=== PATIENT | male | born 1960 | race Caucasian/White ===

== ENCOUNTER 2017-04-10 07:35 | Day surgery (SDC) | payer OTHER ==
[~2017-04-10] VITALS: Ht 177.8 cm; Wt 77.6 kg
[2017-04-10] MEDS ORDERED: ASPI81CH CHEW (08:11)
[2017-04-10] MEDS ORDERED: ATOR20TA15 PO (08:11)
[2017-04-10] MEDS ORDERED: CO Q10CA (08:11)
[2017-04-10] MEDS ORDERED: IBUP200C PO (08:11)
[2017-04-10 08:12] VITALS: BP 156/101; PULSE 65; RESP 18; TEMP 97.7; O2SAT 100
[2017-04-10 08:14] LABS: AUTOMATED NEUTROPHIL # 2.3 TH/MM3 (1.8-7.7); BASOPHIL % 0.8 % (0.0-2.0); EOSINOPHIL # 0.1 TH/MM3 (0-0.4); EOSINOPHIL % 2.4 % (0.0-4.0); HEMATOCRIT 42.5 % (39.0-51.0); HEMO FLAGS DIFF FINAL; LYMPH % 35.1 % (9.0-44.0); LYMPHOCYTE # 1.6 TH/MM3 (1.0-4.8); MEAN CELL VOLUME 85.7 FL (80.0-100.0); MEAN CORPUSCULAR HEMOGLOBIN 28.3 PG (27.0-34.0); MEAN CORPUSCULAR HGB CONC 33.1 % (32.0-36.0); MONO % 9.5 % (0.0-8.0); NEUT % 52.2 % (16.0-70.0); PLATELET COUNT 157 TH/MM3 (150-450); RED BLOOD COUNT 4.96 MIL/MM3 (4.50-5.90); RED CELL DISTRIBUTION WIDTH 13.7 % (11.6-17.2); WHITE BLOOD COUNT 4.4 TH/MM3 (4.0-11.0)
[2017-04-10 08:28] LABS: APTT (PATIENT) 23.9 SEC (24.3-30.1); PROTHROMBIN TIME - PATIENT 10.9 SEC (9.8-11.6)
[2017-04-10 08:30] LABS: BICARBONATE 32.1 MEQ/L (21.0-32.0); POTASSIUM 3.9 MEQ/L (3.5-5.1)
[2017-04-10] MEDS ORDERED: IOHEXOL 350 MG/ML 100 ML BTL (for Cath Lab) OTHER ONE (08:55)
[2017-04-10] MEDS ORDERED: MIDAZOLAM HCL 2 MG/2 ML VIAL ONE ×2 (08:57→12:12)
[2017-04-10] MEDS ORDERED: HEPARIN-NS/PF INJ 500 ML ONE (08:57)
[2017-04-10] MEDS ORDERED: NITROGLYCERIN INJ 5 ML ONE (08:58)
[2017-04-10] MEDS ORDERED: HEPARIN SODIUM - IV 10,000 UNITS/10 ML VIAL ONE (08:58)
[2017-04-10] MEDS ORDERED: VERAPAMIL HCL 5 MG/2 ML VIAL ONE (08:59)
--- NOTE | 2017-04-10 10:09 | CATHPROC ---
[employer] HIS Report Study Information Study Number Admission Scheduled Start Study Start [id number] Apr 10 2017 7:35AM 04/10/2017 Apr 10 2017 8:57AM [place] Service Cardiac Catheterization Admit Source Facility Department Other [facility] - [employer] Academic Coach Physician and Clinical Staff Initial Kirill Garnica Mgmt Specialist Shena Medeiros RN Mgmt Specialist Joyce Wilder BSRLit Recorder Alcides Flynn RCIS(BS) Shavon Steward RCIS TECH2 Procedures Performed Procedure Location (Site) Vessel Name Coronary Angiograms LCA Left Coronary Coronary Angiograms RCA Right Coronary L Heart Cath Equipment Time Car Retarder Operator Description Size Mfg Part Number Used/Scraped TRANSDUCER, TRUWAVE [id number] 09:14 JONES CARABALLO * Used W/STOCKCOCK *[id number] 534-518T *[id number] 534-521T *[id number] 09:14 [email or web address] PACK, CCL CUSTOM * Used *[id number] 09:14 [email or web address] SUPPORT, ARTERIAL ADULT 80034 Used BAND, RADIAL COMPRESSION TR [id number] 09:54 [employer] MEDICAL 29CM Used LARGE 29 *[id number] 09:14 [employer] WIRE, EXCHANGE 260CM 3MMJ 260CM Used *[id number] 09:14 NAMIC MANIFOLD, 4 PORT * Used *[id number] 09:14 [employer]ED OMNIPAQUE, 350 MG, 150ML 150ML [id number] Used [id number] 09:14 HORVATH Shut Down BLANKET,WARM AIR CCL * Used *[id number] SHEATH, FR6 TRANSRADIAL [id number] 09:14 [employer] MEDICAL FR 6 Used SLENDER 10CM *[id number] History: Current Medications Medication Dosage/Unit Route Frequency Last Date/Time Taken ASA Statins (any) History: Allergies Allergy Reaction No Known Allergies History: Risk Factors Family History of Hypertension Dyslipidemia Previous [place] Previous Heart Failure Premature CAD Yes Yes No No No Prior Valve Prior PCI Prior CABG Surgery No No No Cerebrovascular Peripheral Artery Chronic Lung On Dialysis Diabetes Disease Disease Disease No No No No No History: Stress Tests Stress or Imaging Studies Performed Yes Standard Exercise Stress Stress Test Result Test Yes Negative Stress Echo No Stress Test SPECT Stress Test SPECT Result Stress Test SPECT Ischemia Risk/Extent Yes Positive Low Stress Test CMR No Cardiac CTA Coronary Calcium Score No No History: Other Current Smoker No Labs Hgb (g/dl) Hct (%) WBC (l/cumm) Platelets (thousands) 11.60-17.00 35.00-51.00 4.00-11.00 150.00-450.00 14.0 42.5 4.4 157 Glucose (mg/dl) BUN (mg/dl) Creatinine (mg/dl) BUN:Creatinine (1:x) 74.00-106.00 7.00-18.00 0.50-1.30 10.00-20.00 86 15 1.0 15 Na (meq/l) K (meq/l) 136.00-145.00 3.50-5.10 141 3.9 INR (PTT:PT) 0.90-1.10 1 CPK-MB (ng/ML) 0.50-3.60 Not Drawn Medication Medication Total Dose (Bolus/Oral) Medication Total Dosage/Unit 1% XYLOCAINE 10 mL FENTANYL 50 mcg RADIAL COCKTAIL 5 mL (Bolus) VERSED 1 mg Medications (Bolus/Oral) Medication Time Given Dosage/Unit Administered By Reason VERSED 04/10/2017 9:35:00 AM 1 mg Shena Medeiros 1 mg VERSED given in lab by Shena Medeiros, RN in Left Antecubital via Peripheral IV. Ordered by Kirill Jaramillo. FENTANYL 04/10/2017 9:36:00 AM 50 mcg Shena Medeiros 50 mcg FENTANYL given in lab by Shena Medeiros, RN in Left Antecubital via Peripheral IV. Ordered by Kirill White. 1% XYLOCAINE 04/10/2017 9:36:54 AM 10 mL Kirill White 10 mL 1% XYLOCAINE given in lab by Kirill White in Right Radial via Subcutaneous. Ordered by Kirill Jaramillo. Ntg 200mcg Verapamil 2.5mg Heparin RADIAL COCKTAIL 04/10/2017 9:38:35 AM 5 mL (Bolus) Kirill White 2500U 5 mL (Bolus) RADIAL COCKTAIL given in lab by Kirill White via Radial. Using [Solution Name]. Ord ered by Kirill White. Reason: Ntg 200mcg Verapamil 2.5mg Heparin 3500U. Medication (Drip) Medication Time Given Dosage/Unit Concentration/Unit Diluent (ml) Solution [facility] Solutions 04/10/2017 8:58:40 AM 0 mL (IV) 500 NaCl .9 Patient arrived on [facility] in Left Antecubital via Peripheral IV. Pump/Drip Flow = 20 ml/hr usin g NaCl .9. Initial Case Assessment Cardiovascular HR Rhythm NIBP Chest Pain 59 SINUS JACQUES 154/86 0 Edema Present Skin color Skin None Normal Warm Dry Circulatory - Right Pulses Dorsalis Pedis Femoral Radial 2 2 3 Scale (0,1,2,3,4,d) Circulatory - Left Pulses Dorsalis Pedis Femoral Radial 2 2 Scale (0,1,2,3,4,d) Circulatory - Lower Extremities Color Lower Right Color Lower Left Normal Normal Neurological State Oriented to time-place- Alert Moves all extremities person Respiration - General Respiration Rate SpO2 (%) (B/min) 16 100 Final Case Assessment Cardiovascular HR Rhythm NIBP Chest Pain 59 SINUS JACQUES 154/86 0 Edema Present Skin color Skin None Normal Warm Dry Circulatory - Right Pulses Dorsalis Pedis Femoral Radial 2 2 3 Scale (0,1,2,3,4,d) Circulatory - Left Pulses Dorsalis Pedis Femoral Radial 2 2 Scale (0,1,2,3,4,d) Circulatory - Lower Extremities Color Lower Right Color Lower Left Normal Normal Neurological State Oriented to time-place- Alert Moves all extremities person Respiration - General Respiration Rate SpO2 (%) (B/min) 16 100 Chronological Log Time Study Chronological Log 8:57:59 Patient arrived via Bed. 8:58:00 Patient Name, D.O.B, / Armband Verified By R.N. 8:58:00 Consent signed by the physician and the patient and verified by the [employer] Academic [employer] staff. 8:58:01 Pre-op and post- op instructions given; patient acknowledges understanding of instructions. 8:58:03 Allens test performed on the right radial and ulnar artery. 8:58:12 Patient has been NPO for Less than 6Hrs. 8:58:13 Skin Breakdown- 8:58:39 A # 20 IV was noted in the Antecubital (left). Grade = 0 8:58:40 Patient arrived on [facility] in Left Antecubital via Peripheral IV. Pump/Drip Flow = 20 ml/hr using NaCl .9. 8:58:41 History and physical on the chart or being dictated. Assessment: Initial Case, HR=59 BPM, Rhythm=SINUS JACQUES, FTUO=390/86 mmhg, Chest Pain=0, Edema=N one, Color=Normal, Skin = Warm, Dry Right Pulses: Mitesh Ped=2, Femoral=2, Radial=3 Left Pulses: Mitesh Ped=2, Femoral=2 8:58:43 Lower Right Extremities: Color=Normal Lower Left Extremities: Color=Normal Neurological: State=Alert, Ox3, ARELLANO Respiration: Resp=16 B/min, NiO0=762 % Vitals capture started with the following parameters, Patient=Adult, Interval=5 min, Initial Pre rapmo=625 mmHg, 9:02:25 Deflation Rate=5 mmHg, Cuff placed on Right Arm 9:03:59 HR=63 bpm, EHUR=309/86 mmhg, UxU0=438.0 %, Resp=16 B/min, Pain=0, Basil=10, Cao=2 9:08:07 HR=55 bpm, ZKCP=986/82 mmhg, SpO2=98.0 %, Resp=26 B/min, Pain=0, Basil=10, Cao=2 9:13:06 HR=70 bpm, QCAL=241/81 mmhg, IhB3=633.0 %, Resp=7 B/min, Pain=0, Basil=10, Cao=2 9:18:05 NJ=484 bpm, WCTG=430/88 mmhg, SpO2=99.0 %, Resp=12 B/min, Pain=0, Basil=10, Cao=2 9:19:18 Right Radial and groin(s) prepped with 2% chlorhexidine, and with a 3 min. waiting time. 9:19:23 MD arrived. 9:23:06 HR=62 bpm, EHTL=141/82 mmhg, BaG4=587.0 %, Resp=7 B/min, Pain=0, Basil=10, Cao=2 9:25:09 Pressure channel 1 zeroed. 9:28:07 HR=60 bpm, ZPIU=409/76 mmhg, UnH3=295.0 %, Resp=15 B/min, Pain=0, Basil=10, Cao=2 9:28:58 Reference ECG taken 9:33:06 HR=56 bpm, YPPM=927/82 mmhg, UrX5=351.0 %, Resp=13 B/min, Pain=0, Basil=10, Cao=2 9:35:00 1 mg VERSED given in lab by Shena Medeiros, RN in Left Antecubital via Peripheral IV. Order ed by Kirill White. Time Out. Correct patient, correct procedure,correct physician, power injector not loaded with c ontrast with surgical 9:35:09 team present. Time Out Concurred by , individual staff in procedure 50 mcg FENTANYL given in lab by Shena Medeiros, RN in Left Antecubital via Peripheral IV. Order ed by Christopher, 9:36:00 Kirill. 9:36:50 Case Start 10 mL 1% XYLOCAINE given in lab by Kirill White in Right Radial via Subcutaneous. Ordered b yesy White, 9:36:54 Kirill. 9:37:26 Access site was RIGHT Radial Artery. 9:38:07 HR=58 bpm, HVMJ=591/78 mmhg, SpO2=98.0 %, Resp=17 B/min, Pain=0, Basil=10, Cao=2 A SHEATH, FR6 TRANSRADIAL SLENDER 10CM FR 6 was advanced into the Radial (right) using the Navarro eng 9:38:20 technique. 5 mL (Bolus) RADIAL COCKTAIL given in lab by Kirill White via Radial. Using [Solution Name] . Ordered by 9:38:35 Kirill White. Reason: Ntg 200mcg Verapamil 2.5mg Heparin 3500U. A JR 4.0 INFINITI CATHETER FR 5 was advanced over a wire. OMNIPAQUE, 350 MG, 150ML 150ML was use d for 9:41:40 injections. Recorded Pressure: LV, HR=59, Condition=Condition 1 9:42:22 (Left Ventricle) LV 97/-1/6 Recorded Pressure: LV, Ao, HR=62, Condition=Condition 1 9:42:42 (Left Ventricle) LV 96/0/5, (Aorta) Ao 91/58/73 9:43:06 HR=61 bpm, HUFP=148/56 mmhg, SpO2=93.0 %, Resp=15 B/min, Pain=0, Basil=10, Cao=2 9:43:13 The RCA was injected and visualized at various angles. OMNIPAQUE, 350 MG, 150ML 150ML used. Recorded Pressure: Ao, HR=58, Condition=Condition 1 9:43:42 (Aorta) Ao 90/59/75 After removing the current catheter a JL 3.5 INFINITI CATHETER FR 5 was advanced over a WIRE, EX CHANGE 260CM 9:43:57 3MMJ 260CM. 9:44:26 The LCA was injected and visualized at various angles. OMNIPAQUE, 350 MG, 150ML 150ML used. 9:48:07 HR=68 bpm, OOPJ=029/67 mmhg, SpO2=95.0 %, Resp=16 B/min, Pain=0, Basil=10, Cao=2 9:53:06 HR=69 bpm, HUDO=715/73 mmhg, SpO2=98.0 %, Resp=12 B/min 9:53:07 Catheter was removed 9:53:10 Case End Radial Compression Device Used. 9 mLs of air placed in BAND, RADIAL COMPRESSION TR LARGE 29 29 CM. Affected 9:53:13 hand 96 % O2 saturation. 9:58:10 HR=61 bpm, AOVL=661/72 mmhg, SpO2=96.0 %, Resp=14 B/min, Pain=0, Basil=10, Cao=2 Assessment: Final Case, HR=59 BPM, Rhythm=SINUS JACQUES, GXKJ=537/86 mmhg, Chest Pain=0, Edema=N one, Color=Normal, Skin = Warm, Dry Right Pulses: Mitesh Ped=2, Femoral=2, Radial=3 Left Pulses: Mitesh Ped=2, Femoral=2 10:03:37 Lower Right Extremities: Color=Normal Lower Left Extremities: Color=Normal Neurological: State=Alert, Ox3, ARELLANO Respiration: Resp=16 B/min, SeP5=766 % 10:03:47 Sterile dressing applied to site 10:03:48 No case complications noted. 10:03:49 Cine recording checked. 10:03:52 Bedside Report will be given. 10:03:55 Contrast Scanned 10:03:57 A Left Heart Cath was performed. 10:03:59 Patient moved to [facility] End Study - Contrast Media Used In Study Contrast Total Opened (mL) Total Used (mL) Total Wasted (mL) Omnipaque 60 60 0 End Study - Maximum Contrast Load Max Contrast Load (mL) 388.0 End Study - Radiation Exposure Fluoro Time (minutes) 2.5 End Study - Patient Disposition Complications Transferred To Telemetry Bed
[2017-04-10] MEDS ORDERED: MISC INFORMATION XX ONE (10:15)
--- NOTE | 2017-04-10 14:58 | EKG ---
Date Performed: 04/10/2017 Time Performed: 08:15:22 PTAGE: 56 years EKG: Sinus bradycardia. Normal ECG except for rate NO PREVIOUS TRACING DOCTOR: Joellen Bell Interpretating Date/Time 04/10/2017 14:54:40
--- NOTE | 2017-04-10 17:18 | MA ---
cc: KIRILL CARLTON DO DATE OF PROCEDURE 04/10/17 PROCEDURE Left heart catheterization, coronary angiogram, moderate sedation 18 minutes. PREPROCEDURE DIAGNOSIS Chest pain, high coronary calcium score on CT. POSTPROCEDURE DIAGNOSIS Minimal coronary artery disease. MEDICATIONS 1. Versed 1 milligram. 2. Fentanyl 50 micrograms. 3. Verapamil 2.5 milligrams. 4. Nitro 200 micrograms. 5. Heparin 3100 units. CONTRAST 60 cc. FLUOROSCOPY 2.5 minutes. MODERATE SEDATION 18 minutes. ESTIMATED BLOOD LOSS 10 cc. PROCEDURAL SUMMARY Morales Baker is a pleasant 56-year-old male who was originally seen in the outpatient office by Dr. Shields and was found to have a high calcium score. Overall, he did well on an exercise nuclear stress test but was having chest pain. Because of this he was recommended cardiac catheterization to rule out significant lesions. Risks, benefits and alternatives were explained to him and he consented as such. He was brought to the lab and prepped in the usual sterile fashion. Right radial artery was accessed using a modified Seldinger technique and placement of a 5/6 Vietnamese slender sheath. A JR-4 was advanced over a J-wire to the ascending aorta and across the aortic valve for measurement of left ventricular pressure. This was then pulled back across the aortic valve showing no significant gradient of aortic stenosis. JR-4 was used for selective angiography of the right coronary system. This was exchanged out for a JL-3.5 which was used for selective angiography of the left coronary system. JL-3.5 was removed over a J-wire. Radial band was placed over the arteriotomy site for hemostasis. The patient left the cardiac catheterization technician cardiovascularly stable. FINDINGS Left main relatively short with 10% disease. Adequate reflux showing no ostial disease. Bifurcates into an LAD and circumflex. LAD normal size vessel with mild luminal irregularities in the midportion. It gives off two major diagonals with no significant disease. Left circumflex normal size vessel with no significant disease. It gives off two major obtuse marginals with the first one having 10% ostial disease and the second one having no significant disease. RCA normal size vessel with no significant disease throughout. LVEDP 5. IMPRESSION 1. Chest pain, noncardiac in nature. 2. High coronary calcium score on CT scan. 3. Minimal coronary artery disease on cardiac catheterization. RECOMMENDATIONS 1. Mr. Baker appears to have no significant coronary artery disease. 2. We will continue him on medical management. 3. He will follow up with Dr. Shields in the office. 4. Consideration of increasing his Lipitor dose as he does have a significant amount of calcium both on CT and on coronary angiogram. Thank you for allowing me to see Morales Baker. If there are any questions please do not hesitate to call. Kirill Carlton DO VGP/EO /10:05 AM /5:06 PM
== END 2017-04-10 12:55 | disposition home or self-care (01) ==
LOC: HCAT 07:35 → HDIC 07:35 → HCAT 12:55
PROVIDERS: ATTEND Nuclear Medicine Nuclear Cardiology
DX: R07.89 Other chest pain (principal); I25.10 Atherosclerotic heart disease of native coronary artery without angina pectoris; Z01.818 Encounter for other preprocedural examination; Z01.810 Encounter for preprocedural cardiovascular examination
CPT/HCPCS: 80048; 85025; 85610; 85730; 93005; 93454; C1769; C1893; J1644; J2250; J3010; Q9967